=== PATIENT | female | born 1965 | race Caucasian/White ===

== ENCOUNTER 2021-11-01 11:13 | Inpatient (IN) | payer MEDICARE ==
[~2021-11-01] VITALS: Ht 175.3 cm; Wt 92.2 kg
[~2021-11-01 11:13] MED LIST: GABA-585 PO; LAMO25TA5 PO; LITH150C PO; QUET25TA5 PO
[2021-11-01] MEDS ORDERED: IV NORMAL SALINE 1000ML BAG 1,000 ML IV ONE (11:45)
[2021-11-01 11:57] LABS: BASO % 0 % (0-3); EOS % 0 % (0-3); HEMATOCRIT 53.4 % (36.0-47.0); HEMOGLOBIN 17.7 g/dL (12.0-15.5); LYMPH # 1.1 x10^3/uL (1.0-4.8); LYMPH % 8 % (24-48); MEAN CORPUSCULAR HEMOGLOBIN 29 pg (25-35); MEAN CORPUSCULAR HGB CONC 33 g/dL (31-37); MEAN CORPUSCULAR VOLUME 87 fL (79-100); MONO # 0.7 x10^3/uL (0.0-1.1); MONO % 5 % (0-9); NEUT # 12.4 x10^3/uL (1.8-7.7); NEUT % 87 % (31-73); PLATELET COUNT 254 x10^3/uL (140-400); RED BLOOD COUNT 6.15 x10^6/uL (3.50-5.40); RED CELL DISTRIBUTION WIDTH 15.3 % (11.5-14.5); WHITE BLOOD COUNT 14.2 x10^3/uL (4.0-11.0)
[2021-11-01 12:11] LABS: CREATININE 0.8 mg/dL (0.6-1.0); GFR 74.7; POTASSIUM 4.6 mmol/L (3.5-5.1)
[2021-11-01 12:17] LABS: ALBUMIN 3.2 g/dL (3.4-5.0); ALBUMIN/GLOBULIN RATIO 0.8 (1.0-1.7); MAGNESIUM 2.1 mg/dL (1.8-2.4); TOTAL BILIRUBIN 0.8 mg/dL (0.2-1.0); TOTAL PROTEIN 7.1 g/dL (6.4-8.2)
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
[2021-11-01 13:15] LABS: BILIRUBIN,URINE SMALL (NEG); CLARITY,URINE CLEAR; COLOR,URINE YELLOW; NITRITE,URINE NEGATIVE (NEG); PROTEIN,URINE 30 mg/dL (NEG-TRACE); UROBILINOGEN,URINE 0.2 mg/dL (0.2 mg/dL)
[2021-11-01 13:22] LABS: AMPHETAMINE/METHAMPHETAMINE NEG (NEG); BARBITURATES NEG (NEG); BENZODIAZEPINES NEG (NEG); CANNABINOIDS POS (NEG); COCAINE NEG (NEG); METHADONE NEG (NEG); OPIATES NEG (NEG); PHENCYCLIDINE NEG (NEG)
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
[2021-11-01 13:30] LABS: BACTERIA,URINE 0 /HPF (0-FEW); RBC,URINE 0 /HPF (0-2); WBC,URINE 0 /HPF (0-4)
--- NOTE | 2021-11-01 13:40 | RAD ---
XR CHEST 1V History: Reason: SOA / Spl. Instructions: / History: Comparison: None. Findings: Mild diffuse interstitial thickening with bibasilar ill-defined opacities. No pleural effusion. No pn eumothorax. Normal heart size. Impression: 1. Mild diffuse interstitial thickening with ill-defined opacities, may represent pulmonary edema or infection. Electronically signed by: Lamont Schaeffer DO (11/01/2021 1:37 PM) [facility]
[2021-11-01] MEDS: IV NORMAL SALINE 1000ML BAG 1,000 ML IV SCH (17:57)
[2021-11-01] MEDS: cefTRIAXone IV Push 1 GM VIAL. IVP SCH (17:57)
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
[2021-11-01] MEDS ORDERED: DOXYCYCLINE HYCLATE 100 MG in IV DEXTROSE 5% 100ML 100 ML IV SCH (19:00)
[2021-11-01] MEDS ORDERED: IPRATRPIUM/ALBUTEROL 0.5/2.5MG 3 ML NEBU. NEB SCH (20:00)
--- NOTE | 2021-11-01 20:48 | EKG ---
[facility] [address] [place] [address] Test Date: 2021-11-01 Test Time: 11:33:18 Pat Name: PRAKASH GARRIDO Department: Room: ED HOLD 18 Gender: F Potato Spotter: : 1965 Requested By: JEREMY GARCIA Order Number: [id number] Reading MD: Milton Valles Measurements Intervals [place] Rate: 152 P: 90 IN: 82 QRS: -29 QRSD: 118 T: 115 QT: 310 QTc: 500 Interpretive Statements SINUS TACHYCARDIA LEFTWARD AXIS Electronically Signed On 11-03-2021 15:07:16 PATIENT FINANCIAL REPRESENTATIVE by Milton Valles
[2021-11-02 03:00] VITALS: BP 127/49
[2021-11-02 07:00] VITALS: BP 126/60
[2021-11-02] MEDS: IV NORMAL SALINE 1000ML BAG 1,000 ML IV SCH ×2 (07:20→20:40)
[2021-11-02] MEDS ORDERED: chlordiazePOXIDE HCL 25 MG CAPSULE PO PRN ×2 (07:45)
[2021-11-02] MEDS ORDERED: diphenhydrAMINE 50 MG/ML VIAL IVP PRN (07:45)
[2021-11-02] MEDS ORDERED: HALOPERIDOL LACTATE 5 MG/ML VIAL. IVP PRN (07:45)
[2021-11-02] MEDS ORDERED: cloNIDine HCL 0.1 MG TABLET PO PRN (07:45)
[2021-11-02] MEDS: IPRATROPIUM/ALBUTEROL 20/100mcg/INH INHALER. INH SCH ×4 (08:00→20:00)
--- NOTE | 2021-11-02 08:07 | EKG ---
[facility] [address] [place] [address] Test Date: 2021-11-02 Test Time: 05:49:06 Pat Name: PRAKASH GARRIDO Department: Room: ED HOLD 18 Gender: F Carbon Cleaner: CHRISTINA : 1965 Requested By: JEREMY GARCIA Order Number: [id number] Reading MD: Milton Valles Measurements Intervals [place] Rate: 111 P: 34 [place]: 128 QRS: 11 QRSD: 82 T: 43 QT: 314 QTc: 430 Interpretive Statements SINUS TACHYCARDIA Electronically Signed On 11-03-2021 15:01:42 MEAT SOAKER by Milton Valles
[2021-11-02] MEDS ORDERED: MULTIVIT INFUSN,ADULT 4,VIT K 10 ML, THIAMINE INJ 100 MG, FOLIC ACID INJ 1 MG in IV NOR... IV SCH (09:00)
[2021-11-02] MEDS ORDERED: MULTIVITAMIN with MINERAL TABLET. PO SCH (09:00)
--- NOTE | 2021-11-02 10:30 | NUR ---
SW following. Discussed with RN, pt homeless (living in car), room air, regular diet, rapid COVID-19 negative. JACQUES consulted for mental status. Per RN, medically pt is stable. [facility] will continue to follow. Addendum: 11/02/21 at 1457 by DIEGO PALOMO SW Darin AMADOR) tried to meet with pt, however pt was not appropriate to be seen at that time. Pt is open with [facility] so Darin will reach out to her case advocate. Darin will try to meet with pt again tomorrow.
[2021-11-02 11:00] VITALS: BP 115/59
[2021-11-02 15:00] VITALS: BP 115/84
[2021-11-02] MEDS ORDERED: ACETAMINOPHEN 325 MG TABLET. PO PRN (16:00)
[2021-11-02] MEDS ORDERED: ONDANSETRON ODT 4 MG TAB.RAPDIS. PO PRN (16:00)
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
[2021-11-02] MEDS: cefTRIAXone IV Push 1 GM VIAL. IVP SCH (18:00)
[2021-11-02 19:00] VITALS: BP 117/61
[2021-11-02 19:27] LABS: LI < 0.2 mmol/L (0.6-1.2)
[2021-11-02 23:00] VITALS: BP 127/60
[2021-11-02] MEDS: QUEtiapine 25 MG TABLET. PO SCH (23:12)
[2021-11-02] MEDS: GABAPENTIN 100 MG CAPSULE. PO SCH (23:13)
[2021-11-02] MEDS: DOXYCYCLINE HYCLATE 100 MG TABLET PO SCH (23:13)
[2021-11-02] MEDS: LACTOBACILLUS RHAMNOSUS GG 1 CAPSULE. PO SCH (23:13)
[2021-11-03 03:00] VITALS: BP 127/73
[2021-11-03 04:31] LABS: BASO % 0 % (0-3); EOS # 0.1 x10^3/uL (0.0-0.7); EOS % 1 % (0-3); HEMATOCRIT 38.1 % (36.0-47.0); HEMOGLOBIN 12.9 g/dL (12.0-15.5); LYMPH # 2.1 x10^3/uL (1.0-4.8); LYMPH % 28 % (24-48); MEAN CORPUSCULAR HEMOGLOBIN 29 pg (25-35); MEAN CORPUSCULAR HGB CONC 34 g/dL (31-37); MEAN CORPUSCULAR VOLUME 85 fL (79-100); MONO # 0.6 x10^3/uL (0.0-1.1); MONO % 8 % (0-9); NEUT # 4.9 x10^3/uL (1.8-7.7); NEUT % 63 % (31-73); PLATELET COUNT 177 x10^3/uL (140-400); RED BLOOD COUNT 4.47 x10^6/uL (3.50-5.40); RED CELL DISTRIBUTION WIDTH 14.7 % (11.5-14.5); WHITE BLOOD COUNT 7.7 x10^3/uL (4.0-11.0)
[2021-11-03 06:55] LABS: ALBUMIN 2.3 g/dL (3.4-5.0); ALBUMIN/GLOBULIN RATIO 0.8 (1.0-1.7); CREATININE 0.5 mg/dL (0.6-1.0); GFR 128.6; POTASSIUM 3.5 mmol/L (3.5-5.1); TOTAL BILIRUBIN 0.5 mg/dL (0.2-1.0); TOTAL PROTEIN 5.1 g/dL (6.4-8.2)
[2021-11-03 07:00] VITALS: BP 120/43
[2021-11-03] MEDS: IPRATROPIUM/ALBUTEROL 20/100mcg/INH INHALER. INH SCH ×4 (08:00→21:31)
[2021-11-03 11:00] VITALS: BP 131/51
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
[2021-11-03] MEDS: LACTOBACILLUS RHAMNOSUS GG 1 CAPSULE. PO SCH ×2 (12:34→21:31)
[2021-11-03] MEDS: MULTIVITAMIN with MINERAL TABLET. PO SCH (12:35)
[2021-11-03] MEDS: THIAMINE 100 MG TABLET. PO SCH (12:35)
[2021-11-03] MEDS: FOLIC ACID 1 MG TABLET. PO SCH (12:36)
[2021-11-03] MEDS: DOXYCYCLINE HYCLATE 100 MG TABLET PO SCH ×2 (12:36→21:31)
[2021-11-03 15:00] VITALS: BP 107/46
--- NOTE | 2021-11-03 16:00 | NUR ---
Patient c/o numbness in feet, would like physician to address. Patient related that she has had this since last February, to talk with physician in the morning.
[2021-11-03] MEDS: cefTRIAXone IV Push 1 GM VIAL. IVP SCH (18:00)
--- NOTE | 2021-11-03 18:00 | NUR ---
Patient refused IVF, initially declined IV antibiotic, but changed mind and took.
--- NOTE | 2021-11-03 21:23 | NUR ---
Pt refusing all meds at this time. Pt pulled out IV and threw on the floor. Removed tele and will not replace, states, "I want to talk to the doctor about it tomorrow." States that her feet hurt but refused gabapentin. Education provided but pt unwilling to listen. Will place tele when pt agreeable.
[2021-11-03] MEDS: IV NORMAL SALINE 1000ML BAG 1,000 ML IV SCH ×2 (21:30→21:31)
[2021-11-03] MEDS: GABAPENTIN 100 MG CAPSULE. PO SCH (21:31)
[2021-11-03] MEDS: QUEtiapine 25 MG TABLET. PO SCH (21:31)
[2021-11-03 23:00] VITALS: BP 118/48
[2021-11-04 07:00] VITALS: BP 104/48
[2021-11-04] MEDS: IPRATROPIUM/ALBUTEROL 20/100mcg/INH INHALER. INH SCH ×4 (08:00→20:00)
[2021-11-04] MEDS: DOXYCYCLINE HYCLATE 100 MG TABLET PO SCH ×2 (10:07→20:55)
[2021-11-04] MEDS: MULTIVITAMIN with MINERAL TABLET. PO SCH (10:07)
[2021-11-04] MEDS: THIAMINE 100 MG TABLET. PO SCH (10:07)
[2021-11-04] MEDS: FOLIC ACID 1 MG TABLET. PO SCH (10:07)
[2021-11-04] MEDS: LACTOBACILLUS RHAMNOSUS GG 1 CAPSULE. PO SCH ×2 (10:08→20:56)
[2021-11-04 11:00] VITALS: BP 112/59
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
[2021-11-04] MEDS: IV NORMAL SALINE 1000ML BAG 1,000 ML IV SCH (12:40)
[2021-11-04 15:00] VITALS: BP 132/70
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
[2021-11-04] MEDS: cefTRIAXone IV Push 1 GM VIAL. IVP SCH (18:00)
[2021-11-04 19:00] VITALS: BP 118/47
[2021-11-04] MEDS: QUEtiapine 25 MG TABLET. PO SCH (20:48)
[2021-11-04] MEDS: GABAPENTIN 100 MG CAPSULE. PO SCH (20:49)
--- NOTE | 2021-11-04 22:00 | NUR ---
Patient discharged to home. Discharge instructions and prescriptions discussed and given to patient. Patient verbalized understanding. All belongings bagged and with patient. Call received from cabin supervisor that they would be arriving soon. Patient assisted down to ER waiting room in wheelchair with her belongings.
== END 2021-11-04 22:00 | disposition home or self-care (01) | DRG 871 ==
LOC: ER 11:13 → ED HOLD 14:00 → 5 NORTH 14:10
PROVIDERS: ADMIT Internal Medicine; ATTEND Internal Medicine
DX: A41.9 Sepsis, unspecified organism (principal); G93.41 Metabolic encephalopathy; J18.9 Pneumonia, unspecified organism; F10.239 Alcohol dependence with withdrawal, unspecified; F17.200 Nicotine dependence, unspecified, uncomplicated; F31.9 Bipolar disorder, unspecified; F41.9 Anxiety disorder, unspecified; S09.90XA Unspecified injury of head, initial encounter; W01.0XXA Fall on same level from slipping, tripping and stumbling without subsequent striking against object, initial encounter; X99.9XXA Assault by unspecified sharp object, initial encounter; Y92.481 Parking lot as the place of occurrence of the external cause; Z59.02 Unsheltered homelessness; Z83.3 Family history of diabetes mellitus; Z90.710 Acquired absence of both cervix and uterus
CPT/HCPCS: 36415; 70450; 71045; 72125; 80053; 80178; 80307; 81001; 82962; 83690; 83735; 83880; 84484; 85025; 87426; 93005; 96361; 96374; 96375; 96376; G0480; J0696; J1630; J2060; J3411; J3490; J7030; J7060; U0003; U0005; 99285-25; G0378

== ENCOUNTER 2022-02-18 13:39 | Inpatient (IN) | payer MEDICARE, MEDICAID ==
[~2022-02-18] VITALS: Ht 180.3 cm; Wt 90.9 kg
[2022-02-18] MEDS ORDERED: GABAPENTIN 100 MG CAPSULE. PO ONE (14:15)
[2022-02-18] MEDS ORDERED: ACETAMINOPHEN 500 MG TABLET PO ONE (14:15)
[2022-02-18] MEDS ORDERED: IV RINGERS,LACTATED 1000ML 1,000 ML IV ONE ×2 (14:15→15:30)
[2022-02-18] MEDS ORDERED: IV RINGERS,LACTATED 500ML 500 ML IV ONE (14:15)
--- NOTE | 2022-02-18 14:21 | ED.ADGEN ---
Past Medical History Past Medical History: Anxiety Additional Past Medical Histor: ETOH ABUSE Past Surgical History: , Hysterectomy Smoking Status: Current Every Day Smoker Additional Information: 1 PACK/DAY Alcohol Use: None Drug Use: None General Adult EDM: Chief Complaint: DRUG ABUSE HPI: HPI: Patient is a 56 year old female coming in via EMS for multiple complaints. Patient states she has had tremors and "not feeling right. Patient states she ran out of her psych medications 4 days ago. Patient reports that the medications have refills but she has not able to afford them. Patient is claiming that she takes for milligrams of Xanax 3 times per day and had to stop abruptly. Patient states she has had shaking tremors but denies any seizures. Review of Systems: Review of Systems: All other systems within normal limits except for as noted in the HPI Current Medications: Current Medications Medications (Trade) Dose Ordered Sig/Karma Start Time Stop Time Status Last Admin Dose Admin Acetaminophen (Tylenol) 1,000 mg 1X ONCE 02/18/22 14:15 02/18/22 14:16 DC 02/18/22 14:16 1,000 MG Diphenhydramine HCl (Benadryl) 25 mg 1X ONCE 02/18/22 15:00 02/18/22 15:01 DC 02/18/22 15:00 25 MG Gabapentin (Neurontin) 100 mg 1X ONCE 02/18/22 14:15 02/18/22 14:16 DC 02/18/22 14:16 100 MG Haloperidol Lactate (Haldol Inj) 5 mg 1X ONCE 02/18/22 15:00 02/18/22 15:01 DC 02/18/22 15:00 5 MG Lorazepam (Ativan Inj) 1 mg 1X ONCE 02/18/22 15:00 02/18/22 15:01 DC 02/18/22 15:00 1 MG Ringer's Solution 1,000 ml @ 1,000 mls/hr 1X ONCE 02/18/22 15:30 02/18/22 16:29 Allergies: Allergies: Allergies Coded Allergies Type Severity Reaction Last Updated Verified No Known Drug Allergies 02/18/22 No Physical Exam: PE: Constitutional: Well developed, well nourished, no acute distress, non-toxic appearance. [] HENT: Normocephalic, atraumatic, bilateral external ears normal, nose normal. [] Eyes: PERRLA, conjunctiva normal, no discharge. [] Neck: No rigidity, supple, no stridor. [] Cardiovascular: Regular rate and rhythm, brisk cap refill [] Lungs & Thorax: Non labored symmetric respirations, no tachypnea or respiratory distress [] Abdomen: Soft, nondistended. Skin: Warm, dry, no erythema, no rash. [] Back: Unremarkable Extremities: No deformities, range of motion grossly intact, no lower extremity edema [] Neurologic: Alert and oriented X 3, no focal deficits noted. [] Psychologic: Affect normal, judgement normal, mood normal. [] Current Patient Data: Labs: Laboratory Tests Test 02/18/22 13:45 02/18/22 14:25 02/18/22 14:38 White Blood Count 12.8 x10^3/uL (4.0-11.0) H Red Blood Count 5.72 x10^6/uL (3.50-5.40) H Hemoglobin 17.6 g/dL (12.0-15.5) H Hematocrit 50.1 % (36.0-47.0) H Mean Corpuscular Volume 88 fL (79-100) Mean Corpuscular Hemoglobin 31 pg (25-35) Mean Corpuscular Hemoglobin Concent 35 g/dL (31-37) Red Cell Distribution Width 17.2 % (11.5-14.5) H Platelet Count 241 x10^3/uL (140-400) Neutrophils (%) (Auto) 77 % (31-73) H Lymphocytes (%) (Auto) 16 % (24-48) L Monocytes (%) (Auto) 5 % (0-9) Eosinophils (%) (Auto) 1 % (0-3) Basophils (%) (Auto) 0 % (0-3) Neutrophils # (Auto) 9.9 x10^3/uL (1.8-7.7) H Lymphocytes # (Auto) 2.1 x10^3/uL (1.0-4.8) Monocytes # (Auto) 0.7 x10^3/uL (0.0-1.1) Eosinophils # (Auto) 0.1 x10^3/uL (0.0-0.7) Basophils # (Auto) 0.0 x10^3/uL (0.0-0.2) Sodium Level 136 mmol/L (136-145) Potassium Level 3.5 mmol/L (3.5-5.1) Chloride Level 99 mmol/L (98-107) Carbon Dioxide Level 30 mmol/L (21-32) Anion Gap 7 (6-14) Blood Urea Nitrogen 5 mg/dL (7-20) L Creatinine 0.8 mg/dL (0.6-1.0) Estimated GFR (Cockcroft-Gault) 74.7 BUN/Creatinine Ratio 6 (6-20) Glucose Level 102 mg/dL (70-99) H Lactic Acid Level 2.9 mmol/L (0.4-2.0) H Calcium Level 9.7 mg/dL (8.5-10.1) Phosphorus Level 4.2 mg/dL (2.6-4.7) Magnesium Level 2.0 mg/dL (1.8-2.4) Total Bilirubin 0.6 mg/dL (0.2-1.0) Aspartate Amino Transferase (AST) 15 U/L (15-37) Alanine Aminotransferase (ALT) 15 U/L (14-59) Alkaline Phosphatase 136 U/L (46-116) H Troponin I High Sensitivity 8 ng/L (4-50) FB-Gyo-M-Type Natriuretic Peptide 21 pg/mL (0-124) Total Protein 8.0 g/dL (6.4-8.2) Albumin 3.8 g/dL (3.4-5.0) Albumin/Globulin Ratio 0.9 (1.0-1.7) L Salicylates Level 7.2 mg/dL (2.8-20.0) Salicylate Last Dose Date Unknown Salicylate Last Dose Time Unknown Acetaminophen Level < 2.0 mcg/ml (10-30) L Acetaminophen Last Dose Date Unknown Acetaminophen Last Dose Time Unknown Ethyl Alcohol Level < 10 mg/dL (0-10) Urine Collection Type Unknown Urine Color (Auto) Light yellow Urine Turbidity Clear Urine pH (Auto) 6.5 (<5.0-8.0) Urine Specific Huntly 1.005 (1.000-1.030) Urine Protein (Auto) Negative mg/dL (Negative) Urine Glucose (Auto)(UA) Negative mg/dL (Negative) Urine Ketones (Auto) Negative mg/dL (Negative) Urine Blood (Auto) Negative (Negative) Urine Nitrite Negative (Negative) Urine Bilirubin (Auto) Negative (Negative) Urine Urobilinogen (Auto) 2 mg/dL (Normal) Urine Leukocyte Esterase (Auto) Negative (Negative) Urine RBC 0 /HPF (0-2) Urine WBC Occ /HPF (0-4) Urine Squamous Epithelial Cells Many /LPF Urine Bacteria Few /HPF (0-FEW) Urine Opiates Screen Neg (NEG) Urine Methadone Screen Neg (NEG) Urine Barbiturates Neg (NEG) Urine Phencyclidine Screen Neg (NEG) Urine Amphetamine/Methamphetamine Neg (NEG) Urine Benzodiazepines Screen Neg (NEG) Urine Cocaine Screen Neg (NEG) Urine Cannabinoids Screen Neg (NEG) Urine Ethyl Alcohol Neg (NEG) Influenza Type A Antigen Negative (NEGATIVE) Influenza Type B Antigen Negative (NEGATIVE) SARS-CoV-2 Antigen (Rapid) Negative (NEGATIVE) Laboratory Tests 02/18/22 13:45 Laboratory Tests 02/18/22 13:45 Vital Signs: Vital Signs Date Time Temp Pulse Resp B/P (MAP) Pulse Ox O2 Delivery O2 Flow Rate FiO2 02/18/22 14:54 104 20 107/59 (75) 89 Room Air 02/18/22 13:39 99.4 99.4 EKG: EKG: Sinus tachycardia, heart rate 115 bpm, no STEMI[] Heart Score: C/O Chest Pain: No Risk Factors: Risk Factors: DM, Current or recent (<one month) smoker, HTN, HLP, family history of CAD, obesity. Risk Scores: Score 0 - 3: 2.5% MACE over next 6 weeks - Discharge Home Score 4 - 6: 20.3% MACE over next 6 weeks - Admit for Clinical Observation Score 7 - 10: 72.7% MACE over next 6 weeks - Early Invasive Strategies Radiology/Procedures: Radiology/Procedures: [facility] [address] [place], [place] [id number] IMAGING REPORT Signed PATIENT: PRAKASH GARRIDO ACCOUNT: [id number] : 1965 LOCATION: ER AGE: 56 SEX: F EXAM STATUS: REG ER ORD. PHYSICIAN: REBECCA LOCKWOOD MD REASON: hypoxic PROCEDURE: CHEST AP ONLY XR CHEST 1V 02/18/2022 3:30 PM INDICATION: Hypoxia COMPARISON: 11/01/2021 TECHNIQUE: Portable frontal view of the chest is provided. FINDINGS: The cardiomediastinal silhouette is within normal limits. Limited interstitial changes are identified the lung bases, similar to the prior examination from 11/01/2021.. There are no significant pleural effusions. There is no pulmonary vascular congestion. Lung apices are not included on this radiograph. No pneumothorax. No suspicious osseous abnormality. IMPRESSION: Chronic interstitial changes without acute cardiopulmonary process. Electronically signed by: Shruti Kimble MD (02/18/2022 3:52 PM) [facility] DICTATED and SIGNED BY: SHRUTI KIMBLE MD DATE: 02/18/22 1549 [] Course & Med Decision Making: Course & Med Decision Making Per patient's chart review she has had similar visits in the past. Does a 15 visit after she ran out of her Ativan and was in withdrawal. Was admitted to years ago for alcohol withdrawal. Per K tracks patient's last prescription for a benzodiazepine was August 2021 for 15 tablets of clonazepam. UDS negative for benzodiazepines. Patient is showing signs of withdrawal from alcohol or benzodiazepines. Dragon Disclaimer: Dragon Disclaimer: This electronic medical record was generated, in whole or in part, using a voice recognition dictation system. Departure Departure Impression: Primary Impression: Withdrawal complaint Additional Impression: Auditory hallucinations Disposition: ADMITTED INPATIENT Admitting Physician: ADRIANA Condition: STABLE Referrals: NO PCP (PCP) Problem Qualifiers REBECCA LOCKWOOD MD Feb 18, 2022 14:21
[2022-02-18 14:23] LABS: BASO % 0 % (0-3); EOS # 0.1 x10^3/uL (0.0-0.7); EOS % 1 % (0-3); HEMATOCRIT 50.1 % (36.0-47.0); HEMOGLOBIN 17.6 g/dL (12.0-15.5); LYMPH # 2.1 x10^3/uL (1.0-4.8); LYMPH % 16 % (24-48); MEAN CORPUSCULAR HEMOGLOBIN 31 pg (25-35); MEAN CORPUSCULAR HGB CONC 35 g/dL (31-37); MEAN CORPUSCULAR VOLUME 88 fL (79-100); MONO # 0.7 x10^3/uL (0.0-1.1); MONO % 5 % (0-9); NEUT # 9.9 x10^3/uL (1.8-7.7); NEUT % 77 % (31-73); PLATELET COUNT 241 x10^3/uL (140-400); RED BLOOD COUNT 5.72 x10^6/uL (3.50-5.40); RED CELL DISTRIBUTION WIDTH 17.2 % (11.5-14.5); WHITE BLOOD COUNT 12.8 x10^3/uL (4.0-11.0)
[2022-02-18 14:38] LABS: CALCIUM 9.7 mg/dL (8.5-10.1); CREATININE 0.8 mg/dL (0.6-1.0); GFR 74.7; POTASSIUM 3.5 mmol/L (3.5-5.1)
[2022-02-18 14:47] LABS: ACETAMIN < 2.0 mcg/ml (10-30); ETHANOL < 10 mg/dL (0-10); SALIC 7.2 mg/dL (2.8-20.0)
[2022-02-18 14:52] LABS: BARBITURATES NEG (NEG); BENZODIAZEPINES NEG (NEG); CANNABINOIDS NEG (NEG); COCAINE NEG (NEG); METHADONE NEG (NEG); OPIATES NEG (NEG); PHENCYCLIDINE NEG (NEG)
[2022-02-18 14:53] LABS: AMPHETAMINE/METHAMPHETAMINE NEG (NEG)
[2022-02-18 14:54] LABS: ALBUMIN 3.8 g/dL (3.4-5.0); ALBUMIN/GLOBULIN RATIO 0.9 (1.0-1.7); PHOSPHORUS 4.2 mg/dL (2.6-4.7); TOTAL BILIRUBIN 0.6 mg/dL (0.2-1.0)
[2022-02-18 14:59] LABS: BACTERIA,URINE FEW /HPF (0-FEW); RBC,URINE 0 /HPF (0-2); WBC,URINE OCC /HPF (0-4)
[2022-02-18 15:00] LABS: INFLUENZA A PATIENT NEGATIVE (NEGATIVE); INFLUENZA B PATIENT NEGATIVE (NEGATIVE)
[2022-02-18] MEDS ORDERED: diphenhydrAMINE 50 MG/ML VIAL IVP ONE (15:00)
[2022-02-18] MEDS ORDERED: HALOPERIDOL LACTATE 5 MG/ML VIAL. IVP ONE (15:00)
--- NOTE | 2022-02-18 15:54 | RAD ---
XR CHEST 1V 02/18/2022 3:30 PM INDICATION: Hypoxia COMPARISON: 11/01/2021 TECHNIQUE: Portable frontal view of the chest is provided. FINDINGS: The cardiomediastinal silhouette is within normal limits. Limited interstitial changes are identified the lung bases, similar to the prior examination from 11/01/2021.. There are no significant pleural effusions. There is no pulmonary vascular congestion. Lung apices ar e not included on this radiograph. No pneumothorax. No suspicious osseous abnormality. IMPRESSION: Chronic interstitial changes without acute cardiopulmonary process. Electronically signed by: Digna Granados MD (02/18/2022 3:52 PM) [facility]
[2022-02-18] MEDS ORDERED: ONDANSETRON PF 4 MG/2 ML VIAL. IVP PRN (16:15)
[2022-02-18] MEDS ORDERED: ACETAMINOPHEN 325 MG TABLET. PO PRN (16:15)
[2022-02-18] MEDS ORDERED: guaiFENesin/CODEINE 100mg/10mg 5 ML LIQUID PO PRN (18:30)
[2022-02-18] MEDS: IV NORMAL SALINE 1000ML BAG 1,000 ML IV SCH (18:51)
--- NOTE | 2022-02-18 18:53 | NUR ---
Patient assessed for elopement risk per elopement policy and procedures, patient not deemed a risk
[2022-02-18 19:00] VITALS: BP 110/60
[2022-02-18] MEDS: TOBRAMYCIN 0.3% OPHTH SOLUTION 5ML BOTTLE. OU SCH (19:53)
[2022-02-18] MEDS: cefTRIAXone IV Push 1 GM VIAL. IVP SCH (19:53)
[2022-02-18] MEDS: LITHIUM CARBONATE 150 MG CAPSULE. PO SCH (19:53)
[2022-02-18] MEDS: GABAPENTIN 100 MG CAPSULE. PO SCH (19:54)
[2022-02-18] MEDS: IPRATRPIUM/ALBUTEROL 0.5/2.5MG 3 ML NEBU. NEB SCH (20:00)
--- NOTE | 2022-02-18 20:12 | HP ---
DATE OF SERVICE: 02/18/2022 ADMIT DATE: 02/18/2022 CHIEF COMPLAINT: Mental status change, not feeling right, did not take my medications. HISTORY OF PRESENT ILLNESS: The patient is a pleasant 56-year-old female with psychiatric issues. She has not been taking her medications for some time for some reason. She is somewhat well known to my service. I remember I had admitted her a few months ago for similar issues. Today when she presents to the ER, she is quite weak. She has a cough. She has got conjunctivitis in her eyes with green discharge. She apparently does still smoke. I discussed the case with ER physician. We are going to admit the patient. I am going to get her back on her medications and start antibiotics and gentamicin eyedrops. PAST MEDICAL HISTORY: Noncompliance, psychiatric issues, anxiety, alcohol abuse, , hysterectomy, tobacco abuse. ALLERGIES: None. FAMILY HISTORY: Diabetes. SOCIAL HISTORY: She smokes and drinks. I am not sure about the drugs. MEDICATIONS: Reviewed, please refer to the MRAD. REVIEW OF SYSTEMS: Difficult to obtain. She is so sedated. PULMONARY: She complains of slight shortness of breath and cough. GENERAL: She complains of weakness. HEENT: She complains of discharge from her eyes. PHYSICAL EXAMINATION: VITALS: Within normal limits and are stable. GENERAL: No apparent distress. Alert and oriented. HEENT: She has greenish discharge from both eyes, copious amounts. EYES: Extraocular muscles are intact, pupils are equally round and reactive to light and accommodation. MUSCULOSKELETAL: Well developed, well nourished, good range of motion. ENDOCRINE: No thyromegaly was palpated. LYMPHATICS: No cervical chain or axillary nodes were noted. HEMATOPOIETIC: No bruising. NECK: Supple, no JVD, no thyromegaly was noted. LUNGS: She has a cough with some slight crackles. HEART: RRR, S1, S2 present. Peripheral pulses intact, no obvious murmurs were noted. ABDOMEN: Soft, nontender. Positive bowel sounds no organomegaly, normal bowel sounds. EXTREMITIES: Without any cyanosis, clubbing, or edema. Pedal pulses intact, Homans sign is negative. NEUROLOGIC: Normal speech, normal tone. A and O x 3, moves all extremities, no obvious focal deficits. PSYCHIATRIC: Normal affect, normal mood. Stable. SKIN: No ulcerations or rashes, good skin turgor, no jaundice. VASCULAR: Good capillary refill, neurovascular bundle appears to be intact. LABORATORY DATA: White count is high at 12.8, hemoglobin is 13.6, platelets 241. Electrolytes are normal. Troponin 8. BNP 21. Drug screen negative. Urinalysis negative. Flu testing and COVID testing are negative. Chest x-ray shows stable chronic interstitial changes. ASSESSMENT AND PLAN: Encephalopathy/psychosis with incidental finding of severe conjunctivitis, probable bronchitis, leukocytosis, noncompliance with her psychiatric meds, thrombocytosis. The patient is being admitted. We will start IV Rocephin. We started gentamicin eyedrops, DuoNebs, p.r.n. O2 per nasal cannula, try to get her home meds resume once we figure out which ones that she is on, IV fluids, trend labs, encourage p.o. intake, psychiatric assessment team evaluation. Long-term prognosis is guarded. CHINTAN/ANDERSON/ADRIANNE DR: Raciel TID: [id number]
[2022-02-18] MEDS ORDERED: QUEtiapine 25 MG TABLET. PO SCH (21:00)
[2022-02-18 23:00] VITALS: BP 107/58
--- NOTE | 2022-02-19 00:28 | EKG ---
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
[2022-02-19] MEDS: IPRATRPIUM/ALBUTEROL 0.5/2.5MG 3 ML NEBU. NEB SCH ×5 (01:29→18:07)
[2022-02-19] MEDS: IV NORMAL SALINE 1000ML BAG 1,000 ML IV SCH ×3 (02:24→23:50)
[2022-02-19 03:00] VITALS: BP 93/54
[2022-02-19] MEDS: TOBRAMYCIN 0.3% OPHTH SOLUTION 5ML BOTTLE. OU SCH ×6 (03:10→21:17)
[2022-02-19 05:13] LABS: BASO % 0 % (0-3); EOS % 1 % (0-3); HEMATOCRIT 41.8 % (36.0-47.0); HEMOGLOBIN 14.3 g/dL (12.0-15.5); LYMPH # 1.9 x10^3/uL (1.0-4.8); LYMPH % 25 % (24-48); MEAN CORPUSCULAR HEMOGLOBIN 30 pg (25-35); MEAN CORPUSCULAR HGB CONC 34 g/dL (31-37); MEAN CORPUSCULAR VOLUME 89 fL (79-100); MONO # 0.5 x10^3/uL (0.0-1.1); MONO % 7 % (0-9); NEUT # 5.1 x10^3/uL (1.8-7.7); NEUT % 67 % (31-73); PLATELET COUNT 178 x10^3/uL (140-400); RED BLOOD COUNT 4.72 x10^6/uL (3.50-5.40); WHITE BLOOD COUNT 7.5 x10^3/uL (4.0-11.0)
[2022-02-19 05:42] LABS: ALBUMIN 2.6 g/dL (3.4-5.0); ALBUMIN/GLOBULIN RATIO 0.8 (1.0-1.7); CALCIUM 8.5 mg/dL (8.5-10.1); CREATININE 0.7 mg/dL (0.6-1.0); GFR 87.2; POTASSIUM 3.8 mmol/L (3.5-5.1); TOTAL BILIRUBIN 0.5 mg/dL (0.2-1.0); TOTAL PROTEIN 5.8 g/dL (6.4-8.2)
[2022-02-19 07:00] VITALS: BP 95/42
[2022-02-19] MEDS: LITHIUM CARBONATE 150 MG CAPSULE. PO SCH (08:18)
[2022-02-19] MEDS: GABAPENTIN 100 MG CAPSULE. PO SCH (08:19)
--- NOTE | 2022-02-19 08:42 | NUR ---
Patient assessed for elopement risk per elopement policy and procedures, patient not deemed a risk
--- NOTE | 2022-02-19 10:14 | PDOC ---
[employer] PROGRESS NOTE Date of Service DOS: DATE: 02/19/22 TIME: 10:14 Chief Complaint Chief Complaint Encephalopathy/psychosis with incidental finding of severe conjunctivitis, probable bronchitis, leukocytosis, noncompliance with her psychiatric meds, thrombocytosis. History of the following; Noncompliance, psychiatric issues, anxiety, alcohol abuse, , hysterectomy, tobacco abuse. History of Present Illness History of Present Illness 02/19/2022 Patient seen and examined Her greenish discharge in her eyes is clearing up nicely She is still quite weak and somewhat encephalopathic Discussed with RN Chart reviewed Vitals/I&O Vitals/I&O: Vital Signs Date Time Temp Pulse Resp B/P (MAP) Pulse Ox O2 Delivery O2 Flow Rate FiO2 02/19/22 08:00 Room Air 3.0 02/19/22 07:00 98.8 92 18 95/42 (59) 100 98.8 I & O 02/18/22 02/18/22 02/19/22 15:00 23:00 07:00 Intake Total 1200 ml 800 ml Balance 1200 ml 800 ml Physical Exam General: No acute distress, Other (Resting on her right side she did awake very briefly and then went back to sleep) Heart: Regular rate Lungs: Clear, Wheezing Extremities: No clubbing Skin: No rashes Labs Labs: Laboratory Tests Test 02/18/22 13:45 02/18/22 14:25 02/18/22 14:38 02/19/22 04:55 White Blood Count 12.8 x10^3/uL (4.0-11.0) 7.5 x10^3/uL (4.0-11.0) Red Blood Count 5.72 x10^6/uL (3.50-5.40) 4.72 x10^6/uL (3.50-5.40) Hemoglobin 17.6 g/dL (12.0-15.5) 14.3 g/dL (12.0-15.5) Hematocrit 50.1 % (36.0-47.0) 41.8 % (36.0-47.0) Mean Corpuscular Volume 88 fL (79-100) 89 fL (79-100) Mean Corpuscular Hemoglobin 31 pg (25-35) 30 pg (25-35) Mean Corpuscular Hemoglobin Concent 35 g/dL (31-37) 34 g/dL (31-37) Red Cell Distribution Width 17.2 % (11.5-14.5) 17.0 % (11.5-14.5) Platelet Count 241 x10^3/uL (140-400) 178 x10^3/uL (140-400) Neutrophils (%) (Auto) 77 % (31-73) 67 % (31-73) Lymphocytes (%) (Auto) 16 % (24-48) 25 % (24-48) Monocytes (%) (Auto) 5 % (0-9) 7 % (0-9) Eosinophils (%) (Auto) 1 % (0-3) 1 % (0-3) Basophils (%) (Auto) 0 % (0-3) 0 % (0-3) Neutrophils # (Auto) 9.9 x10^3/uL (1.8-7.7) 5.1 x10^3/uL (1.8-7.7) Lymphocytes # (Auto) 2.1 x10^3/uL (1.0-4.8) 1.9 x10^3/uL (1.0-4.8) Monocytes # (Auto) 0.7 x10^3/uL (0.0-1.1) 0.5 x10^3/uL (0.0-1.1) Eosinophils # (Auto) 0.1 x10^3/uL (0.0-0.7) 0.0 x10^3/uL (0.0-0.7) Basophils # (Auto) 0.0 x10^3/uL (0.0-0.2) 0.0 x10^3/uL (0.0-0.2) Sodium Level 136 mmol/L (136-145) 141 mmol/L (136-145) Potassium Level 3.5 mmol/L (3.5-5.1) 3.8 mmol/L (3.5-5.1) Chloride Level 99 mmol/L (98-107) 107 mmol/L (98-107) Carbon Dioxide Level 30 mmol/L (21-32) 31 mmol/L (21-32) Anion Gap 7 (6-14) 3 (6-14) Blood Urea Nitrogen 5 mg/dL (7-20) 8 mg/dL (7-20) Creatinine 0.8 mg/dL (0.6-1.0) 0.7 mg/dL (0.6-1.0) Estimated GFR (Cockcroft-Gault) 74.7 87.2 BUN/Creatinine Ratio 6 (6-20) 11 (6-20) Glucose Level 102 mg/dL (70-99) 105 mg/dL (70-99) Lactic Acid Level 2.9 mmol/L (0.4-2.0) 1.3 mmol/L (0.4-2.0) Calcium Level 9.7 mg/dL (8.5-10.1) 8.5 mg/dL (8.5-10.1) Phosphorus Level 4.2 mg/dL (2.6-4.7) Magnesium Level 2.0 mg/dL (1.8-2.4) Total Bilirubin 0.6 mg/dL (0.2-1.0) 0.5 mg/dL (0.2-1.0) Aspartate Amino Transf (AST/SGOT) 15 U/L (15-37) 14 U/L (15-37) Alanine Aminotransferase (ALT/SGPT) 15 U/L (14-59) 11 U/L (14-59) Alkaline Phosphatase 136 U/L (46-116) 95 U/L (46-116) Troponin I High Sensitivity 8 ng/L (4-50) OS-Wev-G-Type Natriuretic Peptide 21 pg/mL (0-124) Total Protein 8.0 g/dL (6.4-8.2) 5.8 g/dL (6.4-8.2) Albumin 3.8 g/dL (3.4-5.0) 2.6 g/dL (3.4-5.0) Albumin/Globulin Ratio 0.9 (1.0-1.7) 0.8 (1.0-1.7) Salicylates Level 7.2 mg/dL (2.8-20.0) Salicylate Last Dose Date Unknown Salicylate Last Dose Time Unknown Acetaminophen Level < 2.0 mcg/ml (10-30) Acetaminophen Last Dose Date Unknown Acetaminophen Last Dose Time Unknown Ethyl Alcohol Level < 10 mg/dL (0-10) Urine Collection Type Unknown Urine Color (Auto) Light yellow Urine Turbidity Clear Urine pH (Auto) 6.5 (<5.0-8.0) Urine Specific [place] 1.005 (1.000-1.030) Urine Protein (Auto) Negative mg/dL (Negative) Urine Glucose (Auto)(UA) Negative mg/dL (Negative) Urine Ketones (Auto) Negative mg/dL (Negative) Urine Blood (Auto) Negative (Negative) Urine Nitrite Negative (Negative) Urine Bilirubin (Auto) Negative (Negative) Urine Urobilinogen (Auto) 2 mg/dL (Normal) Urine Leukocyte Esterase (Auto) Negative (Negative) Urine RBC 0 /HPF (0-2) Urine WBC Occ /HPF (0-4) Urine Squamous Epithelial Cells Many /LPF Urine Bacteria Few /HPF (0-FEW) Urine Opiates Screen Neg (NEG) Urine Methadone Screen Neg (NEG) Urine Barbiturates Neg (NEG) Urine Phencyclidine Screen Neg (NEG) Urine Amphetamine/Methamphetamine Neg (NEG) Urine Benzodiazepines Screen Neg (NEG) Urine Cocaine Screen Neg (NEG) Urine Cannabinoids Screen Neg (NEG) Urine Ethyl Alcohol Neg (NEG) Influenza Type A Antigen Negative (NEGATIVE) Influenza Type B Antigen Negative (NEGATIVE) SARS-CoV-2 Antigen (Rapid) Negative (NEGATIVE) Assessment and Plan Assessmemt and Plan Problems Medical Problems: (1) Auditory hallucinations Status: Acute (2) Withdrawal complaint Status: Acute Encephalopathy/psychosis with incidental finding of severe conjunctivitis, probable bronchitis, leukocytosis, noncompliance with her psychiatric meds, thrombocytosis. History of the following; Noncompliance, psychiatric issues, anxiety, alcohol abuse, , hysterectomy, tobacco abuse. Plan IV antibiotics Beta agonist As needed O2 Gentamicin eyedrops for her conjunctivitis Home meds DVT prophylaxis Full code Encourage p.o. intake Trend labs Comment Review of Relevant I have reviewed the following items gaviota (where applicable) has been applied. Medications: Current Medications Medications (Trade) Dose Ordered Sig/Karma Route PRN Reason Start Time Stop Time Status Last Admin Dose Admin Gabapentin (Neurontin) 100 mg 1X ONCE PO 02/18/22 14:15 02/18/22 14:16 DC 02/18/22 14:16 Acetaminophen (Tylenol) 1,000 mg 1X ONCE PO 02/18/22 14:15 02/18/22 14:16 DC 02/18/22 14:16 Ringer's Solution 1,000 ml @ 1,000 mls/hr 1X ONCE IV 02/18/22 14:15 02/18/22 15:14 DC 02/18/22 14:17 Lorazepam (Ativan Inj) 1 mg 1X ONCE IVP 02/18/22 14:45 02/18/22 14:46 DC 02/18/22 14:42 Haloperidol Lactate (Haldol Inj) 5 mg 1X ONCE IVP 02/18/22 15:00 02/18/22 15:01 DC 02/18/22 15:00 Lorazepam (Ativan Inj) 1 mg 1X ONCE IVP 02/18/22 15:00 02/18/22 15:01 DC 02/18/22 15:00 Diphenhydramine HCl (Benadryl) 25 mg 1X ONCE IVP 02/18/22 15:00 02/18/22 15:01 DC 02/18/22 15:00 Ringer's Solution 1,000 ml @ 1,000 mls/hr 1X ONCE IV 02/18/22 15:30 02/18/22 16:29 DC 02/18/22 16:01 Sodium Chloride 1,000 ml @ 100 mls/hr Q10H IV 02/18/22 16:15 02/19/22 16:14 02/19/22 02:24 Ceftriaxone Sodium (Rocephin) 1 gm Q24H IVP 02/18/22 19:00 02/18/22 19:53 Gabapentin (Neurontin) 100 mg TID PO 02/18/22 21:00 02/19/22 08:19 [place] Carbonate ([place] Carbonate) 150 mg BID PO 02/18/22 21:00 02/19/22 08:18 Quetiapine Fumarate (SEROquel) 25 mg QHS PO 02/18/22 21:00 02/18/22 19:54 Tobramycin Sulfate (Tobrex Ophth Soln) 2 drop Q4HRS OU 02/18/22 20:00 02/19/22 07:34 Justifications for Admission Other Justification TAYLOR ANDRADE III DO Feb 19, 2022 10:14
[2022-02-19 10:50] VITALS: BP 104/53
[2022-02-19] MEDS ORDERED: TRAZ300T2 PO (11:00)
[2022-02-19] MEDS ORDERED: OLAN20TA15 PO (11:07)
[2022-02-19] MEDS ORDERED: HYDR25TA PO (11:07)
[2022-02-19] MEDS ORDERED: PALI3TAB2 PO (11:07)
[2022-02-19] MEDS ORDERED: PALI6TAB3 PO (11:07)
[2022-02-19] MEDS: risperiDONE 1 MG TABLET. PO SCH (11:41)
[2022-02-19] MEDS: hydrOXYzine 25 MG TABLET PO SCH ×2 (13:49→21:17)
[2022-02-19 15:00] VITALS: BP 97/44
[2022-02-19 19:59] VITALS: BP 99/51
[2022-02-19] MEDS ORDERED: traZODone 100 MG TABLET. PO SCH (21:00)
[2022-02-19] MEDS ORDERED: risperiDONE 1 MG TABLET. PO SCH (21:00)
[2022-02-19] MEDS ORDERED: OLANZapine 5 MG TABLET PO SCH (21:00)
[2022-02-19] MEDS: LACTOBACILLUS RHAMNOSUS GG 1 CAPSULE. PO SCH (21:17)
[2022-02-19 23:33] VITALS: BP 100/52
[2022-02-19] MEDS: cefTRIAXone IV Push 1 GM VIAL. IVP SCH (23:43)
[2022-02-20] MEDS: TOBRAMYCIN 0.3% OPHTH SOLUTION 5ML BOTTLE. OU SCH ×3 (00:20→09:10)
[2022-02-20] MEDS ORDERED: ACETAMINOPHEN 325 MG TABLET. PO PRN (01:15)
[2022-02-20] MEDS: IPRATRPIUM/ALBUTEROL 0.5/2.5MG 3 ML NEBU. NEB SCH ×2 (01:59→06:26)
[2022-02-20 03:13] VITALS: BP 115/62
[2022-02-20] MEDS: IV NORMAL SALINE 1000ML BAG 1,000 ML IV SCH (05:42)
[2022-02-20 07:00] VITALS: BP 136/60
--- NOTE | 2022-02-20 08:30 | NUR ---
PATIENT UP AND AMBULATING IN THE ROOM WITH THE IV POLE, OCCASIONALY COMING TO THE DOORWAY OF HER ROOM AND SOMETIMES TO THE NURSES DESK, PATIENT INFORMED THIS CUSTOMER FACILITIES SUPERVISOR THAT HER CAR IS PARKED AT THE [employer] ON [address] NEXT TO [place] [address] AND SHE NEEDS TO BE DISCHARGED, PATIENT ENCOURAGED TO WAIT AND SEE THE DOCTOR AND GET ORDERS WELL SEEING RUSS FROM THE PAT TEAM, PATIENT AGREES BUT CONTINUES TO REQUEST TO LEAVE.
--- NOTE | 2022-02-20 09:00 | NUR ---
PATIENT SEEN BY DOCTOR ANDRADE AT THIS TIME AND WAS ENCOURAGED BY HIM TO BE SEEN BY THE PAT TEAM BEFORE LEAVING THE HOSPITAL, PATIENT WAS ENCOURAGED TO BE PATIENT AND LESS IMPULSIVE. CALL RECEIVED FROM RUSS ([facility]) AND INFORMED THIS READING ASSISTANT THAT HE WOULD BE HERE TO SEE THE PATIENT SOON. PATIENT INFORMED AND NURE PHARMACEUTICAL PROCESS ENGINEER NOTIFIED FOR CLOTHES FOR PATIENT TO WEAR WHEN SHE LEAVES. CALL PLACED TO [employer] TO CONFIRM THAT PATIENTS' CAR WAS THERE.
[2022-02-20] MEDS: LACTOBACILLUS RHAMNOSUS GG 1 CAPSULE. PO SCH (09:08)
[2022-02-20] MEDS: hydrOXYzine 25 MG TABLET PO SCH (09:08)
[2022-02-20] MEDS: risperiDONE 1 MG TABLET. PO SCH (09:09)
--- NOTE | 2022-02-20 09:25 | NUR ---
PATIENT WAS ASSESSED FOR ELOPEMENT PRECAUTIONS PER THIS HORSE TRADER AND WAS DEEMED TO BE AN ELOPEMENT RISK, INTERVENTIONS AT THIS TIME INCLUDE PATIENTS' ROOM STRAIGHT IN FRONT OF THE NURSES STATION, STAFF MEMBERS INFORMED AND ENCOURAGED TO MONITOR PATIENT, BED ALARM PLACED, NURSING ACID RECOVERY OPERATOR AND SECURITY INFORMED.
--- NOTE | 2022-02-20 09:40 | NUR ---
PATIENT INFORMS THIS MANAGEMENT INSTRUCTOR THAT SHE WANTS TO LEAVE AMA AND SIGN THE PAPERWORK, AGAIN PATIENT ENCOURAGED TO WAIT AND SEE THE PAT TEAM, PATIENT STATES "I DON'T WANT TO WAIT ANY LONGER, I'M READY TO GO AND GET MY CAR", THIS MANAGEMENT INSTRUCTOR ENCOURAGED PATIENT TO ALLOW ME TO GET SOME CLOTHES FOR HER FROM THE CLOTHES CLOSET (NURSING CLAMP OPERATOR INFORMED), CALL PLACED TO IN HOUSE TRANSPORTATION TO TRANSPORT HER TO HER CAR AND SECURITY INFORMED. PATIENT REMOVED HER SALINE LOCK, BANDAGE APPLIED PER THIS MANAGEMENT INSTRUCTOR.
--- NOTE | 2022-02-20 10:08 | NUR ---
PATIENT SIGNED AMA FORM, ESCORTED OFF THE UNIT PER THIS HEALTH PLAN MANAGER AND SECURITY/ NURSE VP ANALYTICS. PATIENT LEAVES PER HOSPITAL TRANSPORT, EMOTIONAL SUPPORT GIVEN, PPATIENT ENCOURAGED TO MACHINE FEED OPERATOR HER PRESCRIPTIONS AT [facility] THIS HEALTH PLAN MANAGER CALLED AND FOUND OUT THAT SHE HAS TRAZODONE READY FOR MACHINE FEED OPERATOR.
[2022-02-20] MEDS ORDERED: PALI6TAB3 PO (10:34)
[2022-02-20] MEDS ORDERED: AMOX1TAB61 PO (10:34)
[2022-02-20] MEDS ORDERED: LAMO25TA5 PO (10:34)
[2022-02-20] MEDS ORDERED: OLAN20TA15 PO (10:34)
--- NOTE | 2022-02-20 19:35 | DS ---
DATE OF DISCHARGE: 02/20/2022 ADMISSION DIAGNOSES: Psychosis, alcohol withdrawal, noncompliance with her psychiatric medications, probable pneumonia and conjunctivitis. DISCHARGE DIAGNOSES: Resolving alcohol withdrawal, resolving psychosis, resolving conjunctivitis, resolving pneumonia. HOSPITAL COURSE: The patient is a pleasant 56-year-old female who has not been taking her psychiatric meds for some time. She presented with mental status change, weakness. She was coughing. She had severe conjunctivitis. We gave her empiric IV antibiotics and I also placed her on tobramycin eyedrops. We got her back on her home medications. Today, she was up walking the [facility] requesting to be discharged. She seemed to be perfectly normal back to her baseline. We did have the psychiatric assessment team look at her today. They are okay with discharge. We plan to discharge. DISPOSITION: Home. ACTIVITY: As tolerated. DIET: Low sodium. DISCHARGE MEDICATIONS: Please see the MRAD. TOTAL TIME: [address]: Raciel TID: [id number]
== END 2022-02-20 10:08 | disposition left against medical advice (07) | DRG 871 ==
LOC: ER 13:39 → 5 NORTH 16:00
PROVIDERS: ADMIT Internal Medicine; ATTEND Internal Medicine
DX: A41.9 Sepsis, unspecified organism (principal); J18.9 Pneumonia, unspecified organism; G92.8 Other toxic encephalopathy; F10.239 Alcohol dependence with withdrawal, unspecified; D75.839 Thrombocytosis, unspecified; H10.89 Other conjunctivitis; F29 Unspecified psychosis not due to a substance or known physiological condition; F41.9 Anxiety disorder, unspecified; Z53.29 Procedure and treatment not carried out because of patient's decision for other reasons; Z20.822 Contact with and (suspected) exposure to COVID-19; Z83.3 Family history of diabetes mellitus; Z90.710 Acquired absence of both cervix and uterus; Z91.14 Patient's other noncompliance with medication regimen; Z91.19 Patient's noncompliance with other medical treatment and regimen; Z68.27 Body mass index [BMI] 27.0-27.9, adult
CPT/HCPCS: 36415; 71045; 80053; 80307; 80329; 81001; 83605; 83735; 83880; 84100; 84484; 85025; 87428; 93005; 94640; 94760; 96361; 96374; 96375; 96376; G0480; J0696; J1200; J1630; J2060; J7030; J7120; U0003; 99285-25; G0378